=== PATIENT | male | born 1980 | race Caucasian/White ===

== ENCOUNTER 2017-06-27 11:58 | Emergency (ER) | payer MEDICAID ==
[2017-06-27 12:38] VITALS: RESP 18
[2017-06-27] MEDS ORDERED: ONDANSETRON 4 MG/2 ML VIAL IVP ONE (14:23)
[2017-06-27] MEDS ORDERED: LORazepam 2 MG/ML INJ IVP ONE (14:23)
[2017-06-27] MEDS ORDERED: NS 1,000 ML IV ONE ×2 (14:23)
--- NOTE | 2017-06-27 14:23 | EDPHY ---
H & P Smoking Status: Heavy smoker Time Seen by Provider: 06/27/17 14:09 HPI/ROS: CHIEF COMPLAINT: Nausea and vomiting HISTORY OF PRESENT ILLNESS: Patient presents with 24 hours of multiple episodes of nausea and vomiting. No hematemesis or coffee-ground emesis. Worse with oral intake. Not associated with fever or chills. He does have associated generalized abdominal cramping and diarrhea. Symptoms severe today and he feels dehydrated. REVIEW OF SYSTEMS: Eye: no change in vision ENT: no sore throat Cardiac: no chest pain or syncope Pulmonary: no cough or SOB Abdomen: HPI Musculoskeletal: Chronic left arm pain after previous multiple hand surgeries Skin: no rash Neuro: no headache Constitutional: no fever : no urinary symptoms A comprehensive 10 point review of systems is otherwise negative aside from elements mentioned in the history of present illness. PAST MEDICAL HISTORY: Previous multiple left hand surgeries Social history: History of IV drug abuse, last 2 days ago. Tobacco smoker. General Appearance: Alert and conversant, cooperative. Eyes: No scleral icterus. ENT, Mouth: Normal mucous membranes. Respiratory: Normal respiratory effort, breath sounds equal, lungs are clear to auscultation. Cardiovascular: Regular rate and rhythm. Gastrointestinal: Abdomen is soft and non tender. Negative for McBurney's point tenderness or Gonzalez sign. Normal male without testicular swelling or deformity. Neurological: Alert and oriented x3. Normally conversant. Face symmetric, normal movement and sensation in all extremities. Skin: Warm and dry, no rashes. Musculoskeletal: No peripheral edema and no joint swelling. Psychiatric: Not agitated. Appears moderately anxious. Emergency Department course/MDM: IV normal saline 2 L, labs to include CBC and chemistry, Zofran 4 mg IV. Ativan 0.5 mg IV. Signed out to Dr. Su at 1500 with IV and labs and meds pending. (David Berger) Constitutional: Initial Vital Signs Temperature (C) 36.8 C 06/27/17 12:37 Heart Rate 72 06/27/17 12:37 Respiratory Rate 18 06/27/17 12:37 Blood Pressure 104/78 06/27/17 12:37 O2 Sat (%) 100 06/27/17 12:37 O2 Delivery Mode Room Air Allergies/Adverse Reactions: No Known Allergies Allergy (Verified 05/11/16 13:46) Home Medications: Medication Instructions Recorded Ondansetron Odt [Zofran Odt 4 mg 4 mg PO Q4 PRN #6 tab 06/27/17 (*)] Promethazine HCl [Phenergan Rectal] 25 mg MA Q6 PRN #10 suppr 06/27/17 Medical Decision Making ED Course/Re-evaluation: I assumed care of this patient at shift change. He has a history of IV drug abuse and has poor IV access. The staff has been unable to place an IV. Zofran 4 mg ODT given. For p.m.-the patient continues to have mild nausea. Phenergan 25 mg suppository given. At this point, the patient would like to go home with prescriptions for Zofran and Phenergan. His abdomen is soft and nontender and I do not suspect surgical abdomen. Symptoms consistent with gastroenteritis. No vomiting while in the emergency department. He will return for persistent vomiting or any concerns. (Edith Su) Differential Diagnosis: Differential diagnosis considered for nausea and vomiting including but not limited to gastroenteritis, gastritis, appendicitis, and medication side effect. (David Berger) - Data Points Medications Given: Discontinued Medications Ondansetron HCl (Zofran Odt) 4 mg PO EDNOW ONE Stop: 06/27/17 15:17 Last Admin: 06/27/17 15:20 Dose: 4 mg Departure - Departure Disposition: Home, Routine, Self-Care Clinical Impression: Nausea and vomiting Qualifiers: Vomiting type: unspecified Vomiting Intractability: non-intractable Qualified Code(s): R11.2 - Nausea with vomiting, unspecified Condition: Good Instructions: Acute Nausea and Vomiting (ED), Abdominal Pain (ED) Referrals: [facility],. [Clinic] - As per Instructions Prescriptions: Ondansetron Odt [Zofran Odt 4 mg (*)] 4 mg PO Q4 PRN #6 tab PRN Reason: Nausea Promethazine HCl [Phenergan Rectal] 25 mg MA Q6 PRN #10 suppr PRN Reason: vomiting
[2017-06-27] MEDS ORDERED: ONDANSETRON DISINTEGRATING 4 MG TAB PO ONE ×2 (15:16→16:02)
[2017-06-27] MEDS ORDERED: LORazepam 1 MG TAB PO ONE (16:02)
[2017-06-27] MEDS ORDERED: PROMETHAZINE HCL 25 MG SUPPR PR ONE (16:08)
[2017-06-27 16:35] VITALS: BP 140/97; PULSE 69; TEMP 97.7; O2SAT 96
== END 2017-06-27 16:33 | disposition home or self-care (01) ==
DX: R11.2 Nausea with vomiting, unspecified (principal); F17.200 Nicotine dependence, unspecified, uncomplicated

== ENCOUNTER 2017-10-04 17:08 | Emergency (ER) | payer MEDICAID ==
[2017-10-04 17:14] VITALS: RESP 16; TEMP 98.6; O2SAT 97
--- NOTE | 2017-10-04 17:55 | EDPHY ---
H & P Stated Complaint: L ankle pain x 1 wk unk trauma, L arm pain x 20 years Time Seen by Provider: 10/04/17 17:31 HPI/ROS: CHIEF COMPLAINT: Left arm and leg pain HISTORY OF PRESENT ILLNESS: The patient is a 37-year-old homeless man with chronic pain syndrome. He states he is having continued pain in his left ankle as well as his left arm. He has had pain in his arm for about he is 20 years since he shattered at and had reconstructed. He is followed by a pain specialist. He states that over the last week he has also had some pain in his left ankle. He denies trauma. He is not sure why it is hurting. He has had similar complaints in the past but states that today it feels deeper than previously. He is concerned about his bone and maybe a fracture. He has not had a fever. He has not had any swelling or erythema. REVIEW OF SYSTEMS: Constitutional: denies: chills, fever, recent illness, recent injury EENTM: denies: blurred vision, double vision, nose congestion Respiratory: denies: cough, shortness of breath Cardiac: denies: chest pain, irregular heart rate, lightheadedness, palpitations Gastrointestinal/Abdominal: denies: abdominal pain, diarrhea, nausea, vomiting, blood streaked stools Genitourinary: denies: dysuria, frequency, hematuria, pain Musculoskeletal: See HPI Skin: denies: lesions, rash, jaundice, bruising Neurological: denies: headache, numbness, paresthesia, tingling, dizziness, weakness Hematologic/Lymphatic: denies: blood clots, easy bleeding, easy bruising Immunologic/allergic: denies: HIV/AIDS, transplant EXAM: GENERAL: Well-appearing, well-nourished and in no acute distress. HEAD: Atraumatic, normocephalic. EYES: Pupils equal round and reactive to light, extraocular movements intact, sclera anicteric, conjunctiva are normal. ENT: TMs normal, nares patent, oropharynx clear without exudates. Moist mucous membranes. NECK: Normal range of motion, supple without lymphadenopathy or JVD. LUNGS: Breath sounds clear to auscultation bilaterally and equal. No wheezes rales or rhonchi. HEART: Regular rate and rhythm without murmurs, rubs or gallops. ABDOMEN: Soft, nontender, normoactive bowel sounds. No guarding, no rebound. No masses appreciated. BACK: No CVA tenderness, no spinal tenderness, step-offs or deformities EXTREMITIES: Left ankle pain, no deformity, no swelling, no erythema or warmth. The no pain or abnormalities found in foot knee or the leg. NEUROLOGICAL: Cranial nerves II through XII grossly intact. Normal speech, normal gait. 5/5 strength, normal movement in all extremities, normal sensation PSYCH: Normal mood, normal affect. SKIN: Warm, dry, normal turgor, no visible rashes or lesions. Source: Patient Exam Limitations: No limitations - Personal History Tetanus Vaccine Date: 2009 - Medical/Surgical History Hx Asthma: No Hx Chronic Respiratory Disease: No Hx Diabetes: No Hx Cardiac Disease: No Hx Renal Disease: No Hx Cirrhosis: No Hx Alcoholism: No Hx HIV/AIDS: No Hx Splenectomy or Spleen Trauma: No Other PMH: left hand ORIF - Social History Smoking Status: Heavy smoker Constitutional: Initial Vital Signs Temperature (C) 37.0 C 10/04/17 17:11 Heart Rate 88 10/04/17 17:11 Respiratory Rate 16 10/04/17 17:11 Blood Pressure 119/86 H 10/04/17 17:11 O2 Sat (%) 97 10/04/17 17:11 O2 Delivery Mode Room Air Allergies/Adverse Reactions: No Known Allergies Allergy (Verified 05/11/16 13:46) Home Medications: Medication Instructions Recorded Sulfamethox/Tmp 800/160 mg 1 tab PO BID #14 tab 10/04/17 [Bactrim Ds] Medical Decision Making - Diagnostics Imaging Results: Imaging Impressions Ankle X-Ray 10/04/17 17:14 Impression: No bone or joint abnormality identified. Imaging: Discussed imaging studies w/ flexible nanny Radiologist ED Course/Re-evaluation: No abnormalities seen on the x-ray. On repeat exam he does have very faint redness to his ankle. This may be an early cellulitis. No open wound. I will start him on Bactrim. He will follow up within the next day or 2 or return here for symptoms worsen. The patient is asking for narcotic pain medications. We discussed are no narcotic policy. I referred him to his pain management doctor. Differential Diagnosis: Partial list of the Differential diagnosis considered include but were not limited to; chronic pain, fracture, sprain and although unlikely based on the history and physical exam, I also considered cellulitis, gout, arthritis. I discussed these differential diagnoses and the plan with the patient as well as the usual and expected course. The patient understands that the diagnosis is provisional and that in medicine we are not always correct and that further workup is often warranted. Usual and customary warnings were given. All of the patient's questions were answered. The patient was instructed to return to the emergency department should the symptoms at all worsen or return, otherwise to followup with the physician as we discussed. - Data Points Medications Given: Discontinued Medications Trimethoprim/Sulfamethoxazole (Bactrim Ds) 1 ea PO EDNOW ONE PRN Reason: Protocol Stop: 10/04/17 19:05 Last Admin: 10/04/17 19:15 Dose: 1 ea Departure - Departure Disposition: Home, Routine, Self-Care Clinical Impression: Chronic pain disorder, Cellulitis of left ankle Condition: Fair Instructions: Cellulitis (ED), Chronic Pain (ED) Referrals: NONE *PRIMARY CARE P,. [Primary Care Provider] - As per Instructions [facility],. [Clinic] - As per Instructions Prescriptions: Sulfamethox/Tmp 800/160 mg [Bactrim Ds] 1 tab PO BID #14 tab
[2017-10-04] MEDS ORDERED: SULFAMETHOX/TMP 800/160 MG 1 TAB PO ONE (19:04)
[2017-10-04 19:19] VITALS: BP 126/91; PULSE 87
== END 2017-10-04 19:17 | disposition home or self-care (01) ==
DX: L03.116 Cellulitis of left lower limb (principal); F17.200 Nicotine dependence, unspecified, uncomplicated; G89.4 Chronic pain syndrome

== ENCOUNTER 2018-02-19 23:53 | Emergency (ER) | payer MEDICAID ==
[2018-02-20] VITALS: BP 119/61
--- NOTE | 2018-02-20 00:02 | EDPHY ---
H & P Stated Complaint: flu like symptoms, R ankle paim, L arm pain Time Seen by Provider: 02/20/18 00:02 HPI/ROS: HPI CHIEF COMPLAINT: Multiple complaints HISTORY OF PRESENT ILLNESS: 38-year-old male, presents emergency room multiple complaints. He reports that he rolled his ankle 3-4 days ago in has ankle pain. He is able to bear weight on it. Denies any focal numbness or tingling or significant swelling. Additionally patient reports chronic left arm pain since he broke it when he was a teenager. He states he has chronic arm pain. Additionally reports that he is dehydrated as he was outside all day today and has not had much to drink. He is requesting something to drink. Patient denies any significant medical history. He reports to me is homeless. Staying at the nursing home. He arrives by EMS from the homeless nursing home. Past Medical History: Denies significant medical history Past Surgical History: Left arm surgery from fracture Social History: Denies daily use of drugs alcohol tobacco. Homeless. Family History: Noncontributory ROS REVIEW OF SYSTEMS: A comprehensive 10 point review of systems is otherwise negative aside from elements mentioned in the history of present illness. Exam Constitutional nontoxic appearing in no acute distress, triage nursing summary reviewed, vital signs reviewed, awake/alert. Eyes normal conjunctivae and sclera, EOMI, PERRLA. HENT normal inspection, atraumatic, moist mucus membranes, no epistaxis, neck supple/ no meningismus, no raccoon eyes. Respiratory clear to auscultation bilaterally, normal breath sounds, no respiratory distress, no wheezing. Cardiovascular rate normal, regular rhythm, no murmur, no edema, distal pulses normal. Gastrointestinal soft, non-tender, no rebound, no guarding, normal bowel sounds, no distension, no pulsatile mass. Genitourinary no CVA tenderness. Musculoskeletal right lower extremity; mild tenderness palpation over the lateral malleolus. Otherwise neurovascular intact good distal pulse, good cap refill. No significant ankle swelling on exam. Full range of motion. no midline vertebral tenderness, full range of motion, no calf swelling, no tenderness of extremities, no meningismus, good pulses, neurovascularly intact. Skin pink, warm, & dry, no rash, skin atraumatic. Neurologic awake, alert and oriented x 3, AAOx3, moves all 4 extremities equally, motor intact, sensory intact, CN II-XII intact, normal cerebellar, normal vision, normal speech. Psychiatric normal mood/affect. Heme/Lymph/Immune no lymphadenopathy. Differential Diagnosis: Includes but is not limited to in a particular order ankle sprain, ankle contusion, dehydration Medical Decision Making: Plan for this patient 1 g of Tylenol for pain control , Zofran 4 mg ODT for nausea, x-ray right ankle re-evaluate. P.o. Fluids. Re-evaluation: X-ray of the left ankle negative for acute traumatic injury or fracture. Clinically may have an ankle sprain. Will provide ice, Josué wrap and anti- inflammatory pain medicine. Return precautions discussed with the patient. He understands. Comfortable plan. Source: Patient - Personal History Current Tetanus/Diphtheria Vaccine: Yes Tetanus Vaccine Date: 2009 - Medical/Surgical History Hx Asthma: No Hx Chronic Respiratory Disease: No Hx Diabetes: No Hx Cardiac Disease: No Hx Renal Disease: No Hx Cirrhosis: No Hx Alcoholism: No Hx HIV/AIDS: No Hx Splenectomy or Spleen Trauma: No Other PMH: left hand ORIF - Social History Smoking Status: Heavy smoker Constitutional: Initial Vital Signs Temperature (C) 37 C 02/19/18 23:56 Heart Rate 65 02/19/18 23:56 Respiratory Rate 16 02/19/18 23:56 Blood Pressure 119/61 02/19/18 23:56 O2 Sat (%) 99 02/19/18 23:56 O2 Delivery Mode Room Air Allergies/Adverse Reactions: No Known Allergies Allergy (Verified 02/19/18 23:58) Home Medications: Medication Instructions Recorded Aspirin 02/19/18 Medical Decision Making - Data Points Medications Given: Discontinued Medications Acetaminophen (Tylenol) 1,000 mg PO EDNOW ONE Stop: 02/20/18 00:06 Last Admin: 02/20/18 00:11 Dose: 1,000 mg Ondansetron HCl (Zofran Odt) 4 mg PO EDNOW ONE Stop: 02/20/18 00:06 Last Admin: 02/20/18 00:11 Dose: 4 mg Departure - Departure Disposition: Home, Routine, Self-Care Clinical Impression: Ankle sprain Qualifiers: Encounter type: initial encounter Involved ligament of ankle: unspecified ligament Laterality: right Qualified Code(s): S93.401A - Sprain of unspecified ligament of right ankle, initial encounter Condition: Good Instructions: Ankle Sprain (ED) Additional Instructions: 1. Return emergency room if you have worsening symptoms questions or concerns 2. Take it easy. Stay well-hydrated. Referrals: NONE *PRIMARY CARE P,. [Primary Care Provider] - As per Instructions
[2018-02-20] MEDS ORDERED: ONDANSETRON DISINTEGRATING 4 MG TAB PO ONE (00:05)
[2018-02-20] MEDS ORDERED: ACETAMINOPHEN 500 MG TAB PO ONE (00:05)
== END 2018-02-20 00:50 | disposition home or self-care (01) ==
LOC: EDUNIT#
DX: S93.401A Sprain of unspecified ligament of right ankle, initial encounter (principal); F17.200 Nicotine dependence, unspecified, uncomplicated; Z79.82 Long term (current) use of aspirin; X50.9XXA Other and unspecified overexertion or strenuous movements or postures, initial encounter

== ENCOUNTER 2018-12-30 13:22 | Emergency (ER) | payer MEDICAID ==
[2018-12-30 13:27] VITALS: BP 133/92
--- NOTE | 2018-12-30 13:45 | EDPHY ---
H & P Stated Complaint: General pain Time Seen by Provider: 12/30/18 13:30 HPI/ROS: CHIEF COMPLAINT: Sunburn and medication refill HISTORY OF PRESENT ILLNESS: Patient is a 38-year-old homeless polysubstance abuser who comes to the emergency department complaining of sunburn to his forehead. He states that he was wearing his hat backwards the other day and now has 1st degree burn in the shape of an oval to his forehead. No blistering. He has mild peeling. He denies other injuries or complaints. He does however request a refill for pain medication because he has chronic left wrist pain from an accident at age 16. He states that his pain management doctor will no longer give him pain medicine or let him use his marijuana card. Severity: Moderate Modifying factors: None REVIEW OF SYSTEMS: Constitutional: denies: chills, fever, recent illness, recent injury EENTM: denies: blurred vision, double vision, nose congestion Respiratory: denies: cough, shortness of breath Cardiac: denies: chest pain, irregular heart rate, lightheadedness, palpitations Gastrointestinal/Abdominal: denies: abdominal pain, diarrhea, nausea, vomiting, blood streaked stools Genitourinary: denies: dysuria, frequency, hematuria, pain Musculoskeletal: denies: joint pain, muscle pain Skin: See HPI Neurological: denies: headache, numbness, paresthesia, tingling, dizziness, weakness Hematologic/Lymphatic: denies: blood clots, easy bleeding, easy bruising Immunologic/allergic: denies: HIV/AIDS, transplant 10 systems reviewed and negative except as noted EXAM: GENERAL: Well-appearing, well-nourished and in no acute distress. HEAD: See below, Atraumatic, normocephalic. EYES: Pupils equal round and reactive to light, extraocular movements intact, sclera anicteric, conjunctiva are normal. ENT: TMs normal, nares patent, oropharynx clear without exudates. Moist mucous membranes. NECK: Normal range of motion, supple without lymphadenopathy or JVD. LUNGS: Breath sounds clear to auscultation bilaterally and equal. No wheezes rales or rhonchi. HEART: Regular rate and rhythm without murmurs, rubs or gallops. ABDOMEN: Soft, nontender, normoactive bowel sounds. No guarding, no rebound. No masses appreciated. BACK: No CVA tenderness, no spinal tenderness, step-offs or deformities EXTREMITIES: Normal range of motion, no pitting or edema. No clubbing or cyanosis. NEUROLOGICAL: Cranial nerves II through XII grossly intact. Normal speech, normal gait. 5/5 strength, normal movement in all extremities, normal sensation , normal reflexes PSYCH: Normal mood, normal affect. SKIN: 1st degree sunburn to forehead. No blistering. Source: Patient Exam Limitations: No limitations - Personal History Current Tetanus/Diphtheria Vaccine: Unsure Tetanus Vaccine Date: 2009 - Medical/Surgical History Hx Asthma: No Hx Chronic Respiratory Disease: No Hx Diabetes: No Hx Cardiac Disease: No Hx Renal Disease: No Hx Cirrhosis: No Hx Alcoholism: No Hx HIV/AIDS: No Hx Splenectomy or Spleen Trauma: No Other PMH: left hand ORIF - Family History Significant Family History: No pertinent family hx - Social History Smoking Status: Heavy smoker Alcohol Use: Occasionally Drug Use: Marijuana, Other Constitutional: Initial Vital Signs Temperature (C) 37.0 C 12/30/18 13:24 Heart Rate 120 H 12/30/18 13:24 Respiratory Rate 18 12/30/18 13:24 Blood Pressure 133/92 H 12/30/18 13:24 O2 Sat (%) 94 12/30/18 13:24 O2 Delivery Mode Room Air Allergies/Adverse Reactions: No Known Allergies Allergy (Verified 12/30/18 13:27) Home Medications: Medication Instructions Recorded Aspirin 02/19/18 Medical Decision Making ED Course/Re-evaluation: The patient has a 1st degree sunburn. Will dress without low vera. He denies other acute complaints. He did ask me for a refill of narcotic pain medication because he reports that his pain management doctor will no longer give him narcotics and has taken away his marijuana card. We discussed are no narcotic policy. The patient understands. Discussed treatment of his sunburn and indications for returning to the emergency department. Differential Diagnosis: Partial list of the Differential diagnosis considered include but were not limited to; sunburn, opiate abuse, drug-seeking behavior and although unlikely based on the history and physical exam, I also considered trauma, withdrawal, infection. I discussed these differential diagnoses and the plan with the patient as well as the usual and expected course. The patient understands that the diagnosis is provisional and that in medicine we are not always correct and that further workup is often warranted. Usual and customary warnings were given. All of the patient's questions were answered. The patient was instructed to return to the emergency department should the symptoms at all worsen or return, otherwise to followup with the physician as we discussed. Departure - Departure Disposition: Home, Routine, Self-Care Clinical Impression: Sunburn forehead, Drug-seeking behavior Condition: Good Instructions: Sunburn (ED) Referrals: [facility],. [Clinic] - As per Instructions
== END 2018-12-30 13:53 | disposition home or self-care (01) ==
DX: Z76.5 Malingerer [conscious simulation] (principal); L55.0 Sunburn of first degree; F19.10 Other psychoactive substance abuse, uncomplicated; Z59.0 Homelessness

== ENCOUNTER 2019-01-02 16:38 | Emergency (ER) | payer MEDICAID ==
[2019-01-02 16:43] VITALS: BP 123/87
--- NOTE | 2019-01-02 17:13 | EDPHY ---
General Time Seen by Provider: 01/02/19 16:59 Narrative: CLINICAL IMPRESSION: Right foot pain ASSESSMENT/PLAN: 38-year-old homeless male presents to the emergency department with right foot pain after reportedly injuring the foot yesterday. Patient's foot is mildly swollen on the dorsal aspect, no open wounds or obvious deformity. Neurovascular exam intact. No ankle or lower leg pain. X-rays of the foot show no evidence of acute fracture or bony abnormality. Patient was provided a postop shoe for comfort. Primary care follow-up recommended, warning signs return to ED sooner discussed discharge. DIFFERENTIAL DX: Differential includes but not limited to acute fracture, strain/sprain, joint dislocation, soft tissue contusion ED PROCEDURES: Procedure: Splint placement. A postop shoe splint was applied to right foot by equipment maintenance technician, supervised by myself. After application of the splint I returned and re-examined the patient. The splint was adequately immobilizing the joint and distal to the splint the patient's circulation and sensation was intact. ED COURSE: X-ray show no evidence of acute fracture CHIEF COMPLAINT: Right foot pain HPI: 38-year-old homeless male presents to the emergency department with complaints of right foot pain. Patient states that he injured the foot yesterday but cannot tell me how. He believes he fell. He notes swelling. No open wounds. He does sleep outside. No other injuries. No reported fever or chills. He states he is unable to walk on the foot due to pain. PAST MEDICAL HISTORY: Prior orthopedic surgery to left hand, patient reports no hardware in place Social History: Homeless REVIEW OF SYSTEMS: All other systems negative Constitutional: No fever, no chills Musculoskeletal: No deformity, + joint pain Skin: No rashes, color change or open wounds. Neurological: No sensory loss or weakness. PHYSICAL EXAM: General Appearance: Alert, oriented, appropriate for age, dirty, unkempt, cooperative although appears to be under the influence of drugs or alcohol, NAD , well hydrated, non-toxic appearing, VSS, no hypoxia. Neurological: Alert and oriented x 3, normal sensation and strength of extremities Skin: Warm, dry, no rashes, no nodules on palpation. Musculoskeletal: Swelling noted to the dorsum of the right foot. No obvious deformity. Distal neurovascular exam intact. Flat blister noted to the sole of the right foot. No temperature difference between the feet. No lower leg or knee pain. MEDICAL DECISION MAKING: Patient was seen independently. Secondary supervising physician at time of evaluation was Dr. Ambrose. Diagnosis: Right foot contusion. New, requires workup Summary: See assessment and plan for summary of ED visit Independent visualization of images, tracing, or specimens yes. Patient Progress: Stable for discharge. - Diagnostics Imaging Results: Imaging Impressions Foot X-Ray 01/02/19 17:10 Impression: [place] soft tissue swelling. - History Smoking Status: Heavy smoker - Objective Vital Signs: Initial Vital Signs Temperature (C) 36.8 C 01/02/19 16:39 Heart Rate 90 01/02/19 16:39 Respiratory Rate 12 01/02/19 16:39 Blood Pressure 123/87 H 01/02/19 16:39 O2 Sat (%) 95 01/02/19 16:39 O2 Delivery Mode Room Air Allergies/Adverse Reactions: No Known Allergies Allergy (Verified 12/30/18 13:27) Home Medications: Medication Instructions Recorded Aspirin 02/19/18 Departure - Departure Disposition: Home, Routine, Self-Care Clinical Impression: Foot pain, right Condition: Good Instructions: Swollen Joint (ED) Additional Instructions: DISCHARGE INSTRUCTIONS FROM YOUR DOCTOR Thank you for visiting our emergency department today. You were treated by a physician acquisitions assistant today and your case was reviewed with our ED Attending physician. Please keep in mind that discharge from the emergency department does not mean that there is nothing wrong - it simply means that we have not identified an emergency condition that requires further evaluation or treatment in the hospital. You should always plan to follow up with primary care for re- evaluation of your condition in the next 2-3 days. If you have been referred to a specialist, please call as soon as possible (today or tomorrow) to schedule your follow up appointment at the appropriate time. X-RAYS OF YOUR FOOT SHOW NO EVIDENCE OF BROKEN BONES, FRACTURES OR DISLOCATIONS. WE GAVE YOU A JONATHAN WRAP AND POSTOP WALKING SHOE THAT MAY HELP WITH WALKING HOWEVER WE RECOMMEND THAT YOU REST AND NOT WALK MUCH POSSIBLE. ELEVATE THE FOOT. FOLLOW-UP WITH [facility]. RETURN TO THE EMERGENCY DEPARTMENT FOR SEVERE PAIN, SEVERE SWELLING, LOSS OF SENSATION, SIGNIFICANT REDNESS, FEVERS, OR ANY OTHER CONCERN. [facility] HAS WALK-IN APPOINTMENTS FOR THE HOMELESS AT THE FOLLOWING DAYS AND LOCATIONS. NO APPOINTMENT IS NEEDED. TUESDAY 8-10AM AT [facility] AND 11AM-1PM AT [facility] TUESDAY 8-10AM AT [facility] TUESDAY 8-10AM AT [facility] TUESDAY 2-4PM AT [facility] TUESDAY 8-10AM AT [facility] People present with illnesses and injuries in different ways, and it is always possible that we have missed something. You may always return for re-evaluation if symptoms worsen or if they are not improving or if you develop new/different symptoms. Again, thank you for choosing our emergency department. We hope that you feel better. Referrals: NONE *PRIMARY CARE P,. [Primary Care Provider] - As per Instructions [facility],. [Clinic] - 1-2 days without fail
== END 2019-01-02 17:57 | disposition home or self-care (01) ==
DX: M79.671 Pain in right foot (principal)